=== PATIENT | male | born 2000 | race Caucasian/White ===

== ENCOUNTER 2025-09-25 13:17 | Emergency (ER) | payer OTHER, SELFPAY ==
[2025-09-25 13:18] VITALS: BP 164/82; PULSE 98; RESP 20; TEMP 37.2; O2SAT 98
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
--- NOTE | 2025-09-25 14:28 | PC.NURSE ---
pt was called at 1357 and 1427 with no answer to go into a room. pt removed from tracker
--- OUTSIDE RECORDS SUMMARY | 2025-09-26 12:04 | XMS_ITS | Clinical Summary ---
Author Organization [facility] Address [address] [place] [address] Care Team Providers Care Hazardous Materials Analyst Name Role Phone Keanu Martinez MD Primary Care Provider Allergies Active Allergy Reactions Criticality Noted Date Comments Iodine Hives,Swelling 09/08/2024 Medications ondansetron (ZOFRAN-ODT) 4 MG disintegrating tablet Take 1 tablet (4 mg total) by mouth every 8 (eight) hours as needed. 20 tablet 09/08/20 24 Active Additional Information Patient not taking.Reported on 04/11/2025 famotidine (PEPCID) 20 MG tablet Take 1 tablet (20 mg total) by mouth 2 (two) times daily. 60 tablet 09/08/20 24 Active Additional Information Patient not taking.Reported on 04/11/2025 dicyclomine (BENTYL) 20 MG tablet Take 1 tablet (20 mg total) by mouth every 6 (six) hours. 30 tablet 09/08/20 24 Active Additional Information Patient not taking.Reported on 04/11/2025 amphetamine-dextro amphetamine XR (ADDERALL XR) 10 MG 24 hr capsuleIndications :Attention deficit hyperactivity disorder (ADHD), predominantly inattentive type Take 1 capsule (10 mg total) by mouth every morning. 30 capsule 04/22/20 25 Active Active Problems Problem Noted Date Diagnosed Date Class 1 obesity due to exces s calories without serious comorbidity with body mass index (BMI) of 30.0 to 30.9 in adult 04/05/2025 Hydrocele, unspecified 01/29/2014 Immunizations Immunization Administration Dates Next Due Dtap (Acel-Immune) 07/14/2006, 2,01/03/2002,2001 ,2001 HPV4 (Gardasil) 03/18/2014,11/15/2012,07/06/2012 Hepatitis A (Generic) 03/15/2008 Hepatitis A (Havrix [address]) 07/14/2006 Hepatitis B Pediatric 2001 Hib (Generic) 06/11/2002 Hib-Hepatitis B (Comvax) 2001,2001 Influenza (Generic) 12/11/2004 Influenza Adult (Generic) 03/18/2014 MMR (MMRII) 07/14/2006,03/15/2002 Meningococcal (Menactra) 07/30/2019 Meningococcal Vac A,C,Y,W-135 Sc 07/06/2012 Pneumococcal (Prevnar 7) 01/03/2002,2001,0 2001 Polio IPV (Ipol) 07/14/2006,06/11/2002, 1,2001 Tdap (Generic) 06/24/2011 Varicella (Varivax) 03/15/2008,03/15/2002 Family History Medical History Relation Comments Hyperlipidemia Father Hypertension Mother Stroke Mother Relation Status Comments Father Alive Mother Alive Social History Tobacco Use Types Packs/Day Years Used Date Smoking Tobacco: Former Passive Smoke Exposure: Never Smokeless Tobacco: Never Tobacco Cessation:Counseling Given: No Alcohol Use Standard Drinks/Week Comments Yes 0 (1 standard drink = 0.6 oz pur e alcohol) AUDIT-C Answer Date Recorded Frequency of Alcohol Consumption Never 06/14/2019 Average Number of Drinks Not on file 019 Frequency of Binge Drinking Not on file 05/22 PHQ-2 Answer Date Recorded Patient Health Questionnaire-2 Score 0 04/05/2025 Sex and Gender Information Value Date Recorded Sex Assigned at Male 04/06/2025 9:48 AM CDT Legal Sex Male 4:45 PM CDT Gender Identity Not on file Sexual Orientation Not on file Last Filed Vital Signs Vital Sign Reading Time Taken Comments Blood Pressure 124/66 04/11/2025 7:21 AM CDT Pulse 69 04/11/2025 7:21 AM CDT Temperature 36.7 C (98 F) 04/11/2025 7:21 AM CDT Respiratory Rate 19 04/11/2025 7:21 AM CDT Oxygen Saturation 99% 04/11/2025 7:21 AM CDT Inhaled Oxygen Concentration - - Weight 97.8 kg (215 lb 9.6 oz) 04/11/2025 7:21 A M CDT Height 177.8 cm (5' 10) 04/05/2025 10:43 AM CDT Body Mass Index 30.94 04/05/2025 10:43 AM CDT Plan of Treatment Health Maintenance Due Date Last Done Comments Annual Physical 2004 Hepatitis C 2019 DTaP, Tdap and Td Vaccines (7 - Td or Tdap) 06/24/2021 06/24/2011, 07/14/2006, 06/11/2002, Additional history exists COVID-19 Vaccine ( season) 2025 Influenza Adult (#1) 2025 03/18/2014, 12/11/19 05 Hepatitis B Vaccines Completed 2001, 2001, 2001 Pneumococcal Vaccine: Pediatrics (0 to 5 Years) and At-Risk Patients (6 to 49 Years) Aged Out 01/03/2002, 2001, 2001 No longer eligible based on patient's age to complete this topic Hepatitis A Vaccines Completed 03/15/2008, 07/14/20 06 HPV Vaccines Completed 03/18/2014, 122 04/2012, 07/06/2012 Meningococcal Vaccine Completed 07/30/2019, 012 PHQ-2 (Physician Everly) Completed 04/05/2025 Meningococcal B Vaccine Aged Out No l onger eligible based on patient's age to complete this topic RSV Immunizations Under 20 Months Aged Out No longer eligible based on patient's age to complete this topic Insurance [place] [employer] Care Teams Hazardous Materials Analyst Relationship Specialty Start Date End Date Keanu Martinez MD [address] [address] PCP - General FAMILY PRACTICE 04/05/25
--- OUTSIDE RECORDS SUMMARY | 2025-09-26 12:04 | XMS_ITS | Clinical Summary ---
Author Organization [facility] Care Team Providers Care Doll Wigs Hackler Name Role Phone Unavailable Primary Care Provider Unavailabl e Social History Tobacco Use Types Packs/Day Years Used Date Smoking Tobacco: Never Assessed Sex and Gender Information Value Date Recorded Sex Assigned at Not on file Legal Sex Male 7:47 PM CDT Gender Identity Not on file Sexual Orientation Not on file Plan of Treatment Health Maintenance Due Date Last Done Comments Hepatitis C Virus (HCV) Screening 2001 Influenza Immunization (#1) 2025 03/18/2014, 0 12/11/2004 SARS-COV-2 Immunization ( season) 2025 Respiratory Syncytial Virus (RSV) Immunization (Adult) (1 - 1-dose 75+ series) 2076 Hepatitis B Immunization Completed 001, 2001, 2001 Pneumococcal Immunization Combined Aged Out 01/03/2002, 2001, 2001 No longer eligible based on patient's age to complete this topic DTaP/Tdap/Td Immunization Discontinued 2010, 07/14/2006, 06/11/2002, Additional history exists TdaP Immunization Completed 06/24/2011 Human Papillomavirus (HPV) Immunization Completed 03/18/2014, 11/15/2012, 07/06/2012 Meningococcal Immunization (ACWY) Completed 07/30/2019, 07/06/2012 Rotavirus Immunization Aged Out No lo nger eligible based on patient's age to complete this topic
--- OUTSIDE RECORDS SUMMARY | 2025-09-26 12:04 | XMS_ITS | Clinical Summary ---
Author Organization [facility] Address [address] [place] [address] Care Team Providers Care Senior Counsel Commercial Name Role Phone Jae Martinez MD Primary Care Provider [phone] Allergies Active Allergy Reactions Criticality Noted Date Comments Iodinated Contrast Media Anaphylaxis High 09/25/2025 Active Problems Problem Noted Date Diagnosed Date Hydrocele, unspecified 01/29/2014 History of viral infection 03/05/2013 Overview (03/03/2017): History of RSV infection Encounters Date Type Department Care Team Description 09/25/2025 2:[address] CONTRACTOR - 09/25/2025 4:[address] CONTRACTOR Emergency [facility] Emergency Department [address] [place] [id number] Facial laceration, initial encounter (Primary Dx) Discharge Disposition: Discharge to home or self care from Last 3 Months Immunizations Immunization Administration Dates Next Due Tdap 09/25/2025 Surgical History Surgery Date Site/Laterality Comments [place] EXCISION HYDROCELE UNILATERAL Right Surgery [place] Vaginalis Excision Of Hydrocele Right - (Added by TW Conv) Family History Medical History Relation Name Comments Diabetes Other 3 Grandma Diabetes mellit us; Hypertension Other 3 Grandma Hypertension; Relation Name Status Comments Other 1 Grandma Alive Other 2 Grandma Alive Other 3 Grandma Social History Tobacco Use Types Packs/Day Years Used Date Smoking Tobacco: Never Personal Safety Answer Date Recorded Have you ever been in or are you currently in a harmful physical or emotional relationship or is someone making you feel afraid or unsafe? Denies 09/25/2025 Sex and Gender Information Value Date Recorded Sex Assigned at Not on file Legal Sex Male 10:[address] Gender Identity Not on file Sexual Orientation Not on file Last Filed Vital Signs Vital Sign Reading Time Taken Comments Blood Pressure 154/96 09/25/2025 4:[address] CONTRACTOR Pulse 79 09/25/2025 4:[address] CONTRACT[address] Temperature 36.6 C (97.8 F) 09/25/2025 1:[address] CONTRACTOR Respiratory Rate 16 09/25/2025 4:[address] CONTRACT[address] Oxygen Saturation 99% 09/25/2025 4:[address] CONTRACTOR Inhaled Oxygen Concentration - - Weight 99.8 kg (220 lb) 09/25/2025 1:[address] CONTRACTOR Height 180.3 cm (5' 11) 09/25/2025 1:[address] CONTRACTOR Body Mass Index 30.68 09/25/2025 1:[address] CONTRACTOR Plan of Treatment Health Maintenance Due Date Last Done Comments Depression Screening 2001 Hepatitis C Screening 2001 Regular Well Visit/Exam 18-64 2019 Influenza Vaccine (#1) 2025 03/18/2014, 2004 DTaP/Tdap/Td Vaccine (8 - Td or Tdap) 09/25/2035 09/25/2025, 06/24/2011, 07/14/2006, Additional history exists Hepatitis B Screening Completed 2001 , 2001, 2001 Pneumococcal vaccine <65 Aged Out 002, 2001, 2001 No longer eligible based on patient's age to complete this topic Varicella Vaccines Completed 03/15/2008, 03/15/2002 HPV Vaccines Completed 03/18/2014, 10/22, 07/06/2012 Procedures Procedure Name Priority Date/Time Associated Diagnosis Comments ED LACERATION REPAIR Routine 09/25/2025 6:[address] CONTRACT[address] from Last 3 Months Results * Laceration Repair (09/25/2025 6:[address] CONTRACT[address]) Narrative Lizbeth Mata PA - 09/25/2025 6:[address] CONTRACT[address] Lizbeth Mata PA 09/25/2025 6:35 PM Laceration Repair Date/Time: 09/25/2025 6:34 PM Performed by: Lizbeth Mata PA Authorized by: Barrett Saldivar DO Location: Face Face location: Chin Length (cm): 3 Repair method: Sutures Suture size: 5-0 Suture material: Prolene Number of sutures: 4 us Barrett Saldivar DO IN CLINIC/BEDSIDE ORDERABLE S Final Result from Last 3 Months Insurance [facility] Care Teams Senior Counsel Commercial Relationship Specialty Start Date End Date Jae Martinez MD [address] [place] [address] PCP - General Docket Clerk 09/25/25
--- OUTSIDE RECORDS SUMMARY | 2025-09-26 16:12 | XMS_ITS | Clinical Summary ---
Author Organization [facility] Address [address] [place] [address] Care Team Providers Care Steam Shovel Operator Name Role Phone Jae Martinez MD Primary Care Provider Allergies Active Allergy Reactions Criticality Noted Date Comments Iodinated Contrast Media Anaphylaxis High 09/25/2025 Active Problems Problem Noted Date Diagnosed Date Hydrocele, unspecified 01/29/2014 History of viral infection 03/05/2013 Overview (03/03/2017): History of RSV infection Encounters Date Type Department Care Team Description 09/25/2025 2:02 PM WOUND CARE SPECIALIST - 09/25/2025 4:58 PM WOUND CARE SPECIALIST Emergency [facility] Emergency Department [address] [place] [id number] Facial laceration, initial encounter (Primary Dx) Discharge Disposition: Discharge to home or self care from Last 3 Months Immunizations Immunization Administration Dates Next Due Tdap 09/25/2025 Surgical History Surgery Date Site/Laterality Comments [place] EXCISION HYDROCELE UNILATERAL Right Surgery [place] Vaginalis [...] on file Legal Sex Male 10:49 AM WOUND CARE SPECIALIST Gender Identity Not on file Sexual Orientation Not on file Last Filed Vital Signs Vital Sign Reading Time Taken Comments Blood Pressure 154/96 09/25/2025 4:45 PM WOUND CARE SPECIALIST Pulse 79 09/25/2025 4:45 PM WOUND CARE SPECIALIST Temperature 36.6 C (97.8 F) 09/25/2025 1:57 PM WOUND CARE SPECIALIST Respiratory Rate 16 09/25/2025 4:45 PM WOUND CARE SPECIALIST Oxygen Saturation 99% 09/25/2025 4:45 PM WOUND CARE SPECIALIST Inhaled Oxygen Concentration - - Weight 99.8 kg (220 lb) 09/25/2025 1:57 PM WOUND CARE SPECIALIST Height 180.3 cm (5' 11) 09/25/2025 1:57 PM WOUND CARE SPECIALIST Body Mass Index 30.68 09/25/2025 1:57 PM WOUND CARE SPECIALIST Plan of Treatment Health Maintenance Due Date [...] ED LACERATION REPAIR Routine 09/25/2025 6:34 PM WOUND CARE SPECIALIST from Last 3 Months Results * Laceration Repair (09/25/2025 6:34 PM WOUND CARE SPECIALIST) Narrative Lizbeth Mata PA - 09/25/2025 6:34 PM WOUND CARE SPECIALIST Lizbeth Mata PA 09/25/2025 6:35 PM Laceration Repair Date/Time: 09/25/2025 6:34 PM Performed by: Lizbeth Mata PA Authorized by: Barrett Saldivar DO Location: Face Face location: Chin Length (cm): 3 Repair method: Sutures Suture size: 5-0 Suture material: Prolene Number of sutures: 4 us Barrett Saldivar DO IN CLINIC/BEDSIDE ORDERABLE S Final Result from Last 3 Months Insurance [facility] Care Teams Steam Shovel Operator Relationship Specialty Start Date End Date Jae Martinez MD [address] [place] [address] PCP - General Staff Electronic Warfare Officer 09/25/25
--- OUTSIDE RECORDS SUMMARY | 2025-09-26 16:12 | XMS_ITS | Clinical Summary ---
Author Organization [facility] Address [address] [place] [address] Care Team Providers Care Personalization Specialist Name Role Phone Keanu Martinez MD Primary [...] 04/05/2025 10:43 AM CDT Plan of Treatment Upcoming Encounters Date Type Department Care Team (Late st Contact Info) Description 10/02/2025 10:20 AM FREIGHT RATE CLERK Office Visit [facility] Family Medicine - [facility] [address], [address] [place] [address] Michelle, Keanu Renteria MD [address] [place] [address] Health Maintenance Due Date Last Done Comments [...] 03/15/2008, 07/14/20 06 HPV Vaccines Completed 03/18/2014, 12/04/2012, 07/06/2012 Meningococcal Vaccine Completed 07/30/2019, 012 PHQ-2 (Physician [place]) Completed 04/05/2025 Meningococcal B Vaccine Aged Out No l onger eligible based on patient's age to complete this topic RSV Immunizations Under 20 Months Aged Out No longer eligible based on patient's age to complete this topic Insurance [employer] Care Teams Personalization Specialist Relationship Specialty Start Date End Date Keanu Martinez MD [address] [facility] [address] [place], [place] [phone] PCP - General FAMILY PRACTICE 04/05/25
--- OUTSIDE RECORDS SUMMARY | 2025-09-26 16:12 | XMS_ITS | Clinical Summary ---
Author Organization [facility] Care Team Providers Care Director Of People Name Role Phone Unavailable Primary Care Provider [...]
--- OUTSIDE RECORDS SUMMARY | 2025-09-26 16:12 | XMS_ITS | Clinical Summary ---
Author Organization [facility] [employer] Address [address] [place] [address] Care Team Providers Care Acid Regenerator Name Role Phone Carito Morfin MD Primary Care Provider [phone] Source Comments [facility] [employer] | [employer],non-owned Affiliates and Associated Physician Practices is amultiple site organization consisting of ambulatory clinics and hospital sitesin [place], [place], [place] and [place]. This disclosure is being madepursuant to the Care Everywhere program and may not contain all information available regarding this patient. Last updated 18.[facility] [employer] | invest Allergies Active Allergy Reactions Criticality Noted Date Comments Contrast-Iodinated Agents For Ct/Other Angioedema High 03/10/2025 Medications * Be aware that medications may not be up to date on this document. Alwaysverify current medications with the patient. 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 Gender Identity Not on file Sexual Orientation Not on file Last Filed Vital Signs Vital Sign Reading Time Taken Comments Blood Pressure 168/150 03/10/2025 1:34 AM CDT Pulse 129 03/10/2025 1:34 AM CDT Temperature 36.9 C (98.4 F) 03/10/2025 1:34 AM CDT Respiratory Rate 22 03/10/2025 1:34 AM CDT Oxygen Saturation 99% 03/10/2025 1:34 AM CDT Inhaled Oxygen Concentration - - Weight 68 kg (150 lb) 03/10/2025 1:34 AM CDT Height 162.6 cm (5' 4) 03/10/2025 1:34 AM CDT Body Mass Index 25.75 03/10/2025 1:34 AM CDT Plan of Treatment Health Maintenance Due Date Last Done Comments HIV SCREENING 2016 HPV VACCINE (1 - Male 3-dose series) 2016 HEPATITIS C SCREENING 03/05/2019 DTAP/TDAP/TD VACCINES (1 - Tdap) 2020 HEPATITIS B VACCINE (1 of 3 - 19+ 3-dose series) 2020 DEPRESSION SCREENING 11/21/2024 COVID-19 VACCINE (1 - 2023-2 5 season) 2025 INFLUENZA VACCINE (#1) 2025 4, 12/11/2004 ZOSTER VACCINE (1 of 2) 2051 HIB VACCINE Aged Out No longer eligi ble based on patient's age to complete this topic MENINGOCOCCAL (Group B) VACCINE SHARED DECISION-MAKING Aged Out No longer eligible based on patient's age to complete this topic MENINGOCOCCAL GROUPS A/C/Y/W VACCINE Aged Out No longer eligible b ased on patient's age to complete this topic PNEUMOCOCCAL VACCINE Aged Out No long er eligible based on patient's age to complete this topic Insurance [address] [place] [address] Care Teams Acid Regenerator Relationship Specialty Start Date End Date Carito Morfin MD [address] [place] [address] PCP - General 11/16/11"
== END 2025-09-25 13:55 | disposition left against medical advice (07) ==
LOC: ANHED 09-26 01:43
DX: S01.81XA Laceration without foreign body of other part of head, initial encounter (principal)
CPT/HCPCS: 99199